=== PATIENT | male | born 1975 | race Caucasian/White ===

== ENCOUNTER 2017-03-27 02:53 | Emergency (ER) | payer SELFPAY ==
[~2017-03-27] VITALS: Ht 170.2 cm; Wt 116.2 kg
--- NOTE | 2017-03-27 03:15 | NUR ---
Pt BIBSELF C/O LEFT ARM SHOOTING PAIN FOR X3DAYS. Pt STATES HE HAS HYPERTENSION BUT IS NOT TAKING ANY MEDICATIONS FOR IT. Pt IS A/OX3, VERBAL. NO S/S OF ACUTE DISTRESS OR SOB, DENIES CP. Pt WAITING IN ER BED 6. BP 153/94. VS STABLE.
--- NOTE | 2017-03-27 03:18 | NUR ---
Being seen by
--- NOTE | 2017-03-27 03:54 | NUR ---
iV started on RAC #18G, SL.
[2017-03-27 03:56] LABS: BASOPHILS # (AUTO) 0.1 /CMM (0.0-0.2); BASOPHILS % (AUTO) 0.5 % (0.0-2.0); EOSINOPHILS # (AUTO) 0.3 /CMM (0.0-0.7); EOSINOPHILS % (AUTO) 3.1 % (0.0-6.0); HEMATOCRIT 47 % (39-51); HEMOGLOBIN 15.5 g/dL (13.5-17.5); LYMPHOCYTES # (AUTO) 2.9 /CMM (0.8-4.8); LYMPHOCYTES % (AUTO) 26.5 % (20.0-44.0); MEAN CORPUSCULAR HEMOGLOBIN 28 PG (26.0-33.0); MEAN CORPUSCULAR HGB CONC 33 g/dl (31.0-36.0); MEAN CORPUSCULAR VOLUME 84 fL (80-96); MONOCYTES # (AUTO) 0.8 /CMM (0.1-1.30); MONOCYTES % (AUTO) 6.9 % (2.0-12.0); PLATELET COUNT (AUTO) 223 /CMM (150-450); RDW COEFFICIENT OF VARIATION 12.8 (11.5-15.0); RED BLOOD CELL COUNT(AUTO) 5.58 MIL/uL (4.5-6.0); WHITE BLOOD COUNT (AUTO) 11.1 K/uL (4.3-11.0)
[2017-03-27] MEDS ORDERED: KETOROLAC TROMETHAMINE INJ 30 MG/ML VIAL IV ONE (04:00)
[2017-03-27] MEDS ORDERED: KETOROLAC TROMETHAMINE INJ 30 MG/ML VIAL ONE (04:04)
[2017-03-27 04:06] LABS: CARBON DIOXIDE 30 mmol/L (21-32); CHLORIDE 102 mmol/L (98-107); CREATININE 1.2 mg/dL (0.6-1.3); GLUCOSE 106 mg/dL (74-106); SODIUM SERUM 140 mmol/L (136-145); UREA NITROGEN, BLOOD 15 mg/dL (7-18)
[2017-03-27 04:09] LABS: D-DIMER 0.19 mg/L(FEU (0.17-0.50); INR 0.94 (0.87-1.13); PROTHROMBIN TIME 9.8 SECS (9.5-12.7)
--- NOTE | 2017-03-27 04:12 | NUR ---
30MG TORADOL INJ GIVEN ON LT UPPER BUTTOCK
[2017-03-27 04:13] LABS: TROPONIN I < 0.017 ng/mL (0.00-0.056)
[2017-03-27 04:20] LABS: B-TYPE NATRIURETIC PEPTIDE < 5 PG/ML (0-125)
--- NOTE | 2017-03-27 04:53 | NUR ---
Patient discharged to home in stable condition. Written and verbal after care instructions given. Patient verbalizes understanding of instruction. Pt left on foot, ambulatory with steady gait. vs stable.
[2017-03-27 04:54] VITALS: BP 125/87
== END 2017-03-27 04:55 | disposition home or self-care (01) ==
LOC: ER 02:57
DX: R20.9 Unspecified disturbances of skin sensation (principal); I10 Essential (primary) hypertension; F17.200 Nicotine dependence, unspecified, uncomplicated
CPT/HCPCS: 36415; 71010; 80048; 83880; 84484; 85025; 85378; 85730; 93005; 96372; 99285; A4606; J1885; Z7610

== ENCOUNTER 2020-01-07 19:34 | Emergency (ER) | payer OTHER ==
[~2020-01-07] VITALS: Ht 170.2 cm; Wt 122.5 kg
[2020-01-07 19:57] VITALS: BP 161/92
[2020-01-07] MEDS ORDERED: LIDOCAINE 1%-EPI 1:100,000 50 ML VIAL IJ ONE (20:30)
[2020-01-07] MEDS ORDERED: LIDOCAINE MPF 1%-EPI 1:200,000 30 ML VIAL IJ ONE (20:30)
[2020-01-07] MEDS: HYDROCODONE/APAP 5/325MG TABLET PO ONE (20:30)
[2020-01-07] MEDS ORDERED: HYDROCODONE/APAP 5/325MG TABLET ONE (20:31)
[2020-01-07] MEDS ORDERED: LIDOCAINE HCL/MPF 1% 30 ML VIAL IJ ONE (20:32)
--- NOTE | 2020-01-07 20:46 | NUR ---
PAC ZEP AT BEDSIDE FOR LACERATION REPAIR.
[2020-01-07] MEDS: LIDOCAINE 2% 20 ML MDV TP ONE (21:10)
== END 2020-01-07 21:10 | disposition home or self-care (01) ==
LOC: ER 19:36
DX: S61.412A Laceration without foreign body of left hand, initial encounter (principal); F17.200 Nicotine dependence, unspecified, uncomplicated; I10 Essential (primary) hypertension; Z90.89 Acquired absence of other organs; W26.0XXA Contact with knife, initial encounter; Y93.89 Activity, other specified; Y92.89 Other specified places as the place of occurrence of the external cause; Y99.8 Other external cause status
CPT/HCPCS: 12002; 99283; 99406; A6403 ×2; J3490 ×2

== ENCOUNTER 2020-01-09 16:41 | Emergency (ER) | payer OTHER ==
[~2020-01-09] VITALS: Ht 170.2 cm; Wt 122.5 kg
[2020-01-09 16:50] VITALS: BP 162/98
--- NOTE | 2020-01-09 17:30 | NUR ---
WOUND CLEANSED AND WRAPPED WITH CLEAN DRY DRESSING.
--- NOTE | 2020-01-09 17:36 | NUR ---
Patient discharged to home in stable condition. Written and verbal after care instructions given. Patient verbalizes understanding of instruction.
== END 2020-01-09 17:38 | disposition home or self-care (01) ==
LOC: ER 16:42
DX: S61.412D Laceration without foreign body of left hand, subsequent encounter (principal); I10 Essential (primary) hypertension; F17.200 Nicotine dependence, unspecified, uncomplicated; Z90.89 Acquired absence of other organs; X58.XXXD Exposure to other specified factors, subsequent encounter
CPT/HCPCS: 99281; A6403

== ENCOUNTER 2022-02-11 12:18 | Emergency (ER) | payer MEDICAID, OTHER ==
[~2022-02-11] VITALS: Ht 170.2 cm; Wt 124.7 kg
--- NOTE | 2022-02-11 12:20 | NUR ---
BIBS C/O COUGH AND SHORTNESS OF BREATH X2 DAYS, TOOK COVID TEST AT HOME WEDNESDAY TESTED NEGATIVE, SATTING AT 97% ROOM AIR. TO ER BED 6.
[2022-02-11] MEDS ORDERED: ALBUTEROL FS 2.5 MG/3 ML VIAL.NEB ONE (13:00)
[2022-02-11] MEDS ORDERED: IPRATROPIUM NEB FS 0.5 MG/2.5 ML AMPUL.NEB ONE (13:00)
[2022-02-11] MEDS: ALBUTEROL FS 2.5 MG/3 ML VIAL.NEB NEB ONE (13:05)
[2022-02-11] MEDS: IPRATROPIUM NEB FS 0.5 MG/2.5 ML AMPUL.NEB NEB ONE (13:05)
--- NOTE | 2022-02-11 13:05 | NUR ---
Covid and Influenza Swab collected. Labelled / Dated and Timed. Specimen to Lab
[2022-02-11] MEDS ORDERED: predniSONE 20 MG TABLET ONE (13:09)
--- NOTE | 2022-02-11 13:15 | NUR ---
BREATHING TX ADMINISTERED BY RT AT BEDSIDE.
[2022-02-11] MEDS: predniSONE 20 MG TABLET PO ONE (13:21)
[2022-02-11] MEDS ORDERED: PRED20TA PO (14:46)
[2022-02-11] MEDS ORDERED: ALBU18HF2 INH (14:46)
--- NOTE | 2022-02-11 14:52 | NUR ---
Patient discharged to home in stable condition. Written and verbal after care instructions given. Patient verbalizes understanding of instruction.
[2022-02-11 14:56] VITALS: BP 124/80
== END 2022-02-11 14:57 | disposition home or self-care (01) ==
LOC: ER 12:27
DX: J06.9 Acute upper respiratory infection, unspecified (principal); J98.01 Acute bronchospasm; J30.2 Other seasonal allergic rhinitis; I10 Essential (primary) hypertension; Z20.822 Contact with and (suspected) exposure to COVID-19
CPT/HCPCS: 99284; 71045; 87426; 87804; 94799; 94640; J7512; C9803